=== PATIENT | female | born 1960 | race Caucasian/White ===

== ENCOUNTER 2022-08-30 07:08 | Outpatient (CLI) | payer OTHER, SELFPAY | END 2022-08-30 07:09 | disposition home or self-care (01) | LOC: OP CLINIC 07:09 | PROVIDERS: Visit Provider Surgery | DX: Z12.11 Encounter for screening for malignant neoplasm of colon (principal); K64.8 Other hemorrhoids; K55.20 Angiodysplasia of colon without hemorrhage | CPT/HCPCS: 45378; 99153; J1200; J2250; J2405; J3010 ==